=== PATIENT | female | born 1955 | race American Indian/Alaskan Native ===

== ENCOUNTER 2023-07-23 10:46 | Inpatient (IN) | payer BC, OTHER ==
[2023-07-23] MEDS ORDERED: MORPHINE 4 MG/ML SYR ONE (11:33)
[2023-07-23] MEDS ORDERED: ONDANSETRON 4 MG/2 ML VIAL ONE (11:33)
[2023-07-23 11:38] LABS: Absolute Lymphocytes (CBC) 1.8 K/uL (0.7-4.9); Lymphocytes % 26.6 % (15.3-44.8); MCV 87.4 fL (80-100); Platelets 442 thou/uL (152-406); RBC Red Blood Cell Count 5.49 M/uL (3.86-4.86)
[2023-07-23 11:44] LABS: Arterial Blood Carboxyhemoglob 1.6 % (0-1.5); Blood Gas Oxyhemoglobin 81.3 % (94-97); Blood O2 Saturation 84.2 % (92-98.5)
--- NOTE | 2023-07-23 11:47 | RAD REPORT ---
EXAM DESCRIPTION: CT - Head Brain Wo Cont - 07/23/2023 11:28 am CLINICAL HISTORY: Alteration of awareness/confusion COMPARISON: None TECHNIQUE: Computed axial tomography of the head was obtained. IV contrast was not requested. All CT scans are performed using dose optimization technique as appropriate and may include automated exposure control or mA/KV adjustment according to patient size. FINDINGS: Images at the base of the brain are degraded by beam hardening artifact. An intracranial bleed is not seen The ventricles are normal in caliber No extra-axial fluid collection is noted. No significant hyperdensity within the brain noted. Fluid within the sinuses/ mastoids is not seen. IMPRESSION: No gross acute intracranial abnormality seen If patient's symptoms persist MRI of the brain would be recommended
--- NOTE | 2023-07-23 11:50 | RAD REPORT ---
EXAM DESCRIPTION: CT - Chest For Pe Angio - 07/23/2023 11:29 am CLINICAL HISTORY: Chest pain COMPARISON: None. TECHNIQUE: Dynamically enhanced axial 3 mm thick images of the chest were obtained during administra tion of 100 mL Isovue 370 IV contrast. Coronal and oblique reconstruction images were generated and r eviewed. Exam utilizes a protocol for optimal evaluation of pulmonary arterial tree. Maximum intensity projections 3D imaging was utilized All CT scans are performed using dose optimization technique as appropriate and may include automated exposure control or mA/KV adjustment according to patient size. FINDINGS: A pulmonary embolus is not seen. A thoracic aortic aneurysm is not noted. A pleural effusion is not seen. A pericardial effusion is not seen. A lung consolidation is not present. IMPRESSION: Negative for a pulmonary embolism.
[2023-07-23 11:57] LABS: Albumin 4.2 g/dL (3.4-5.0); Bilirubin Total 0.8 mg/dL (0.2-1.0); Potassium 4.3 mEq/L (3.5-5.1); Protein, Total 8.1 g/dL (6.4-8.2)
[2023-07-23 12:01] LABS: Troponin High Sensitivity 129.4 pg/mL (<58.9)
[2023-07-23 12:08] LABS: Protime INR 0.96
--- NOTE | 2023-07-23 12:29 | EDPHYS ---
Physician Documentation [facility] Name: Susan Drake Age: 68 yrs Sex: Female : 1955 Arrival Date: 07/23/2023 Time: 10:46 Bed 4 Private MD: ED Physician Alton Haddad HPI: 07/23 11:07 This 68 yrs old Female presents to ER via Wheelchair with complaints of rt Chest Pain, Shortness Of Breath. 11:07 Patient who is currently on chemotherapy for breast cancer, last session was yesterday rt presents to the ED with an acute onset of chest pain, dyspnea started about 20 minutes prior to arrival. She has a generalized weakness since last chemotherapy treatment. states that she is confused. Denies other acute complaints at this time, symptoms are moderate in severity, no other aggravating alleviating factors. Historical: - Allergies: 10:51 Sulfa (Sulfonamide Antibiotics); jj7 - PMHx: 10:51 Diabetes mellitus; BREAST CANCER; jj7 - PSHx: 10:51 RIGHT MASTECTOMY; jj7 - Immunization history:: Adult Immunizations up to date. - Social history:: Smoking status: Patient denies any tobacco usage or history of. Patient/guardian denies using alcohol, street drugs. - Family history:: not pertinent. ROS: 11:07 Constitutional: Negative for fever, chills, and weight loss, Abdomen/GI: Negative for rt abdominal pain, nausea, vomiting, diarrhea, and constipation, MS/Extremity: Negative for injury and deformity, Skin: Negative for injury, rash, and discoloration, 11:07 Cardiovascular: Positive for chest pain, Negative for edema, 11:07 Respiratory: Positive for shortness of breath, Negative for wheezing, 11:07 Neuro: Positive for altered mental status, weakness, Exam: 11:07 Constitutional: This is a well developed, well nourished patient who is awake, alert, rt and in no acute distress. Head/Face: Normocephalic, atraumatic. Chest/axilla: Normal chest wall appearance and motion. Nontender with no deformity. No lesions are appreciated. Cardiovascular: Regular rate and rhythm with a normal S1 and S2. No gallops, murmurs, or rubs. Normal PMI, no JVD. No pulse deficits. Respiratory: Lungs have equal breath sounds bilaterally, clear to auscultation and percussion. No rales, rhonchi or wheezes noted. No increased work of breathing, no retractions or nasal flaring. Abdomen/GI: Soft, non-tender, with normal bowel sounds. No distension or tympany. No guarding or rebound. No evidence of tenderness throughout. Skin: Warm, dry with normal turgor. Normal color with no rashes, no lesions, and no evidence of cellulitis. MS/ Extremity: Pulses equal, no cyanosis. Neurovascular intact. Full, normal range of motion. Neuro: Awake and alert, GCS 15, oriented to person, place, time, and situation. Cranial nerves II-XII grossly intact. Motor strength 5/5 in all extremities. Sensory grossly intact. Cerebellar exam normal. Normal gait. Psych: Awake, alert, with orientation to person, place and time. Behavior, mood, and affect are within normal limits. 11:07 ECG was reviewed by the Attending Physician. Vital Signs: 10:47 BP 149 / 109; Pulse 119; Resp 22; Pulse Ox 100% ; Weight 95.71 kg; Height 5 ft. 9 in. ; jj7 Pain 4/10; 11:02 Pulse 110; Resp 28; Temp 97.8(O); Pulse Ox 100% on R/A; kd3 12:41 BP 157 / 74; Pulse 102; Resp 22; Pulse Ox 100% on R/A; kd3 13:39 BP 167 / 74; Pulse 98; Resp 16; Pulse Ox 98% on R/A; kd3 10:47 Body Mass Index 31.16 (95.71 kg, 175.26 cm) jj7 10:47 Pain Scale: Adult jj7 MDM: 10:55 Patient medically screened. rt 12:25 Differential diagnosis: Pneumonia, pneumothorax, pulmonary embolism, sepsis, rt electrolyte disturbance, DKA. Data reviewed: vital signs, nurses notes, lab test result(s), EKG, radiologic studies. Consideration of Admission/Observation Patient was admitted/placed on observation. Management of patient was discussed with the following: Hospitalist: Agrees to admit. I considered the following discharge prescriptions or medication management in the emergency department Medications were administered in the Emergency Department. See MAR Patient's ideal body weight is 66 kg, IV resuscitation was based off of this weight as she is obese.. Independent interpretation of the following test(s) in the Emergency Department CT Scan: My interpretation is Interpretation of CT scan images no pulmonary embolism seen on my interpretation of CT scan images. Test considered but Not performed: X-ray: CT scan obtained, x-ray redundant. Care significantly affected by the following chronic conditions: Diabetes. Counseling: I had a detailed discussion with the patient and/or guardian regarding the historical points, exam findings, and any diagnostic results supporting the discharge/admit diagnosis, lab results, radiology results, the need for further work-up and treatment in the hospital. Response to treatment: the patient's symptoms have markedly improved after treatment. 07/23 11:05 Order name: Blood Culture Adult (2) rt 07/23 11:05 Order name: CBC with Diff; Complete Time: 11:55 rt 07/23 11:05 Order name: CMP; Complete Time: 12:16 rt 07/23 11:05 Order name: Lactate w/ 2H reflex if indic.; Complete Time: 12:16 rt 07/23 11:05 Order name: Protime (+inr); Complete Time: 12:16 rt 07/23 11:05 Order name: Ptt, Activated; Complete Time: 12:16 rt 07/23 11:05 Order name: Urinalysis w/ reflexes rt 07/23 11:05 Order name: ABG: VBG only; Complete Time: 12:20 rt 07/23 11:05 Order name: Troponin High Sensitivity; Complete Time: 12:16 rt 07/23 11:05 Order name: BNP; Complete Time: 12:16 rt 07/23 13:11 Order name: NT PRO-BNP EDMS 07/23 13:11 Order name: T4 Free EDMS 07/23 13:11 Order name: Thyroid Stimulating Hormone EDMS 07/23 13:11 Order name: Urinalysis w/ reflexes EDMS 07/23 13:11 Order name: Basic Metabolic Panel EDMS 07/23 13:11 Order name: Basic Metabolic Panel EDMS 07/23 13:11 Order name: Basic Metabolic Panel EDMS 07/23 13:11 Order name: Basic Metabolic Panel EDMS 07/23 13:11 Order name: CBC with Automated Diff EDMS 07/23 13:11 Order name: CBC with Automated Diff EDMS 07/23 13:11 Order name: CBC with Automated Diff EDMS 07/23 13:11 Order name: CBC with Automated Diff EDMS 07/23 13:11 Order name: Lipid Profile EDMS 07/23 13:11 Order name: Lipid Profile EDMS 07/23 13:11 Order name: Magnesium EDMS 07/23 13:11 Order name: Magnesium EDMS 07/23 13:11 Order name: Magnesium EDMS 07/23 13:11 Order name: Magnesium EDMS 07/23 13:11 Order name: Phosphorus EDMS 07/23 13:11 Order name: Phosphorus EDMS 07/23 13:11 Order name: Phosphorus EDMS 07/23 13:11 Order name: Phosphorus EDMS 07/23 11:05 Order name: CT Head Brain wo Cont; Complete Time: 11:55 rt 12 11:05 Order name: CT Chest For PE Angio; Complete Time: 11:55 rt 07/23 11:05 Order name: EKG; Complete Time: 11:06 rt 07/23 11:05 Order name: Accucheck; Complete Time: 12:29 rt 07/23 11:05 Order name: Cardiac monitoring; Complete Time: 11:26 rt 12 11:05 Order name: EKG - Nurse/Tech; Complete Time: 11:21 rt 12 11:05 Order name: IV Saline Lock - Large Bore; Complete Time: 11:26 rt 12 11:05 Order name: Labs collected and sent; Complete Time: 11:27 rt 12 11:05 Order name: O2 Per Protocol; Complete Time: 11:27 rt 07/23 11:05 Order name: O2 Sat Monitoring; Complete Time: 11:27 rt 07/23 11:05 Order name: Vital Signs; Complete Time: 11:27 rt EC:07 Rate is 121 beats/min. Rhythm is regular, Sinus tachycardia with No ectopy. QRS Seney is rt Normal. FL interval is normal. QRS interval is normal. QT interval is normal. No Q waves. Clinical impression: NSR w/ Non-specific ST/T Changes. Administered Medications: 11:26 Drug: morphine IVP or IV 4 mg IVP once over 4 mins Route: IVP; Infused Over: 4 mins; kd3 Site: right antecubital; 13:11 Follow up: Response: No adverse reaction; Pain is decreased kd3 11:26 Drug: Ondansetron IVP 4 mg IVP once; over 2 minutes Route: IVP; Site: right antecubital;kd3 13:11 Follow up: Response: No adverse reaction; Nausea is decreased kd3 12:41 Drug: NS 0.9% IV 1000 ml IV at 1 bolus Per protocol; 1000 mL bolus Route: IV; Rate: 1 kd3 bolus; Site: left upper arm; 12:41 Drug: Cefepime IVPB 2 grams IVPB at 200 ml/hr once over 30 mins; (mix in NS 100 mL) kd3 Route: IVPB; Rate: 200 ml/hr; Infused Over: 30 mins; Site: left upper arm; 13:11 Follow up: IV Status: Completed infusion; IV Intake: 100ml kd3 13:10 Drug: vancoMYCIN IVPB 1 grams IVPB once over 2 hrs Route: IVPB; Infused Over: 2 hrs; kd3 Site: left upper arm; Disposition: 12:29 Critical Care:. rt Disposition Summary: 07/23/23 12:29 Hospitalization Ordered Notes: Hospitalization Status: Inpatient Admission rt Provider: Dilcia Cuevas rt Location: Telemetry/[facility] (Inpatient) rt Condition: Fair rt Problem: new rt Symptoms: have improved rt Bed/Room Type: Standard rt Room Assignment: 220(07/23/23 13:08) eb Diagnosis - Lactic acidosis rt - Elevated troponin rt - Chest pain rt - Dyspnea rt Forms: - Medication Reconciliation Form rt - SBAR form rt - Leadership Thank You Letter rt Critical care time excluding procedures: 12:29 Critical care time: Bedside Care: 30 minutes, Consultation: 5 minutes. Total time: 35 rt minutes Signatures: Dispatcher [employer] Joyce oLpez Kyli RN RN kd3 Estela Silva RN RN jj7 Alton Haddad MD MD rt Corrections: (The following items were deleted from the chart) 13: 12:29 rt eb
--- NOTE | 2023-07-23 12:29 | ER ---
Nurse's Notes [facility] Name: Susan Drake Age: 68 yrs Sex: Female : 1955 Arrival Date: 07/23/2023 Time: 10:46 Bed 4 Private MD: Diagnosis: Lactic acidosis;Elevated troponin;Chest pain;Dyspnea Presentation: 07/23 10:47 Chief complaint: Patient states: SOB,CP, AND MENTAL CONFUSION STARTED 20 MINUTES AGO. j7 HAD CHEMO YESTERDAY. Coronavirus screen: At this time, the client does not indicate any symptoms associated with coronavirus-19. Ebola Screen: No symptoms or risks identified at this time. Initial Sepsis Screen: Does the patient meet any 2 criteria? HR > 90 bpm. Yes Does the patient have a suspected source of infection? No. Patient's initial sepsis screen is negative. Risk Assessment: Do you want to hurt yourself or someone else? Patient reports no desire to harm self or others. Onset of symptoms was July 23, 2023. 10:47 Method Of Arrival: Wheelchair j 10:47 Acuity: SUSAN 3 jj7 Triage Assessment: 10:51 General: Appears in no apparent distress. uncomfortable, Behavior is cooperative, jj7 appropriate for age, crying. Pain: Complains of pain in chest. Cardiovascular: Reports chest pain, fatigue, shortness of breath, DIZZINESS. Historical: - Allergies: 10:51 Sulfa (Sulfonamide Antibiotics); jj7 - PMHx: 10:51 Diabetes mellitus; BREAST CANCER; jj7 - PSHx: 10:51 RIGHT MASTECTOMY; jj7 - Immunization history:: Adult Immunizations up to date. - Social history:: Smoking status: Patient denies any tobacco usage or history of. Patient/guardian denies using alcohol, street drugs. - Family history:: not pertinent. Screenin:29 [facility] ED Fall Risk Assessment (Adult) History of falling in the last 3 months, kd3 including since admission No falls in past 3 months (0 pts) Confusion or Disorientation Yes (5 pts) Intoxicated or Sedated No (0 pts) Impaired Gait Yes (1 pt) Mobility Assist Device Used No (0 pt) Altered Elimination No (0 pt) Score/Fall Risk Level 3 or more points = High Risk Oriented to surroundings, Maintained a safe environment, Educated pt \T\ family on fall prevention, incl call for assistance when getting out of bed, Assessed \T\ reinforced patient's understanding of fall precautions, Provided non-skid footwear, Hourly rounding (assess needs \T\ fall precautionary measures) done. Abuse screen: Denies threats or abuse. Denies injuries from another. Nutritional screening: No deficits noted. Tuberculosis screening: No symptoms or risk factors identified. Assessment: 11:27 General: Appears ill, Behavior is anxious. Pain: Complains of pain in chest Pain kd3 radiates to back Pain began suddenly. Cardiovascular: diaphoretic . Respiratory: Airway is patent Respiratory effort is even, Respiratory pattern is tachypnea. 13:19 Reassessment: Patient and/or family updated on plan of care and expected duration. Pain kd3 level reassessed. Patient is alert, oriented x 3, equal unlabored respirations, skin warm/dry/pink. Patient states feeling better. Patient states symptoms have improved. 13:39 General: called report to gabby ARREOLA. Pt ready for transportation. . kd3 Vital Signs: 10:47 BP 149 / 109; Pulse 119; Resp 22; Pulse Ox 100% ; Weight 95.71 kg; Height 5 ft. 9 in. ; jj7 Pain 4/10; 11:02 Pulse 110; Resp 28; Temp 97.8(O); Pulse Ox 100% on R/A; kd3 12:41 BP 157 / 74; Pulse 102; Resp 22; Pulse Ox 100% on R/A; kd3 13:39 BP 167 / 74; Pulse 98; Resp 16; Pulse Ox 98% on R/A; kd3 10:47 Body Mass Index 31.16 (95.71 kg, 175.26 cm) j7 10:47 Pain Scale: Adult j7 ED Course: 10:46 Patient arrived in ED. im 10:47 Alton Haddad MD is Attending Physician. rt 10:51 Triage completed. jj7 10:51 Arm band placed on right wrist. EKG completed in triage. Results shown to . j7 10:58 Osiris Lyons, RN is Primary Nurse. kd3 11:26 BNP Sent. kd3 11:26 Troponin High Sensitivity Sent. kd3 11:27 Blood Culture Adult (2) Sent. kd3 11:27 CBC with Diff Sent. kd3 11:27 CMP Sent. kd3 11:27 Lactate w/ 2H reflex if indic. Sent. kd3 11:27 Protime (+inr) Sent. kd3 11:27 Ptt, Activated Sent. kd3 11:28 No provider procedures requiring assistance completed. Inserted saline lock: 20 gauge kd3 in right antecubital area, using aseptic technique. Blood collected. Patient maintains SpO2 saturation greater than 95% on room air. 11:29 Patient has correct armband on for positive identification. Bed in low position. Side kd3 rails up X2. Provided Education on: blood cultures . Client placed on continuous cardiac and pulse oximetry monitoring. NIBP monitoring applied. pvc monitor on. 11:30 CT Head Brain wo Cont In Process Unspecified. EDMS 11:30 CT Chest For PE Angio In Process Unspecified. EDMS 12:13 Inserted saline lock: 18 gauge in left upper arm, using aseptic technique. kd3 12:13 IV discontinued, intact, bleeding controlled, No redness/swelling at site. Pressure kd3 dressing applied. 12:28 Dilcia Cuevas MD is Hospitalizing Provider. rt Administered Medications: 11:26 Drug: morphine IVP or IV 4 mg IVP once over 4 mins Route: IVP; Infused Over: 4 mins; kd3 Site: right antecubital; 13:11 Follow up: Response: No adverse reaction; Pain is decreased kd3 11:26 Drug: Ondansetron IVP 4 mg IVP once; over 2 minutes Route: IVP; Site: right antecubital;kd3 13:11 Follow up: Response: No adverse reaction; Nausea is decreased kd3 12:41 Drug: NS 0.9% IV 1000 ml IV at 1 bolus Per protocol; 1000 mL bolus Route: IV; Rate: 1 kd3 bolus; Site: left upper arm; 12:41 Drug: Cefepime IVPB 2 grams IVPB at 200 ml/hr once over 30 mins; (mix in NS 100 mL) kd3 Route: IVPB; Rate: 200 ml/hr; Infused Over: 30 mins; Site: left upper arm; 13:11 Follow up: IV Status: Completed infusion; IV Intake: 100ml kd3 13:10 Drug: vancoMYCIN IVPB 1 grams IVPB once over 2 hrs Route: IVPB; Infused Over: 2 hrs; kd3 Site: left upper arm; Medication: 11:27 VIS not applicable for this client. kd3 Intake: 13:11 IV: 100ml; Total: 100ml. kd3 Outcome: 12:29 Decision to Hospitalize by Provider. rt 14:07 Admitted to Med/surg kd3 14:07 Condition: stable 14:07 Discharge instructions given to patient, family, Instructed on the need for admit, Demonstrated understanding of instructions, 14:08 Patient left the ED. kd3 Signatures: Dispatcher [facility] Osiris Yadav RN RN kd3 Esetla Silva RN RN jj7 Alton Haddad MD MD rt Elisabet Spencer Corrections: (The following items were deleted from the chart) 11:02 11:02 Pulse 110bpm; Resp 32bpm; Pulse Ox 100% RA; Temp 97.8F Oral; kd3 kd3
[2023-07-23] MEDS ORDERED: NA CHLORIDE 0.9% 250 ML ONE (12:45)
[2023-07-23] MEDS ORDERED: VANCOMYCIN 1 GM/VIAL ONE (12:45)
[2023-07-23] MEDS ORDERED: NA CHLORIDE 0.9% 1,000 ML ONE (12:45)
[2023-07-23] MEDS ORDERED: CEFEPIME 1 GM/VIAL ONE (12:46)
[2023-07-23] MEDS ORDERED: NA CHLORIDE 0.9% 100 ML ONE (12:46)
[2023-07-23 12:48] LABS: Urine Bacteria <20 /HPF (<20); Urine Bilirubin NEGATIVE (Negative); Urine Blood Negative (Negative); Urine Clarity Clear (Clear); Urine Color Colorless (Yellow); Urine Glucose 4+ (Over) (Negative); Urine Protein NEGATIVE (Negative); Urine Urobilinogen Normal (Normal); Urine pH 5.5 (5.0-7.0)
[2023-07-23 12:49] LABS: Specific Gravity ND (1.005-1.030)
[2023-07-23] MEDS ORDERED: ONDANSETRON 4 MG/2 ML VIAL IV PRN (13:04)
[2023-07-23] MEDS ORDERED: ALBUTEROL 2.5 MG/3 ML NEB SOL NEB PRN (13:04)
[2023-07-23] MEDS ORDERED: MORPHINE 2 MG/ML SYR IV PRN (13:10)
[2023-07-23] MEDS ORDERED: SODIUM CHLORIDE 0.9% 10ML INJ IV PRN (13:10)
--- NOTE | 2023-07-23 13:22 | P.HP ---
Certification for Inpatient Patient admitted to: Inpatient With expected LOS: <2 Midnights Patient will require the following post-hospital care: None Practitioner: I am a practitioner with admitting privileges, knowledge of patient current condition, hospital course, and medical plan of care. Services: Services provided to patient in accordance with Admission requirements found in Title 42 Section 412.3 of the Code of Federal Regulations <MckeonRuchi bray - Last Filed: 07/23/23 14:03> Patient History Date of Service: 07/23/23 Reason for admission: Sepsis, chest pain, dyspnea History of Present Illness: Ms. Crow, a 68-year-old female with a history of breast cancer currently on chemotherapy, type 2 diabetes [id number], presented to ER via wheelchair with complaints of chest pain and shortness of breath. Patient reports last session chemotherapy was yesterday. Patient reports the chest pain was acute, shortness of breath started prior to arrival to the emergency room. Patient is positive for generalized weakness since last chemotherapy treatment. is helping with the history he states that she is also confused. Patient denies any acute complaints at this time. Patient denies fever, chills, nausea, vomiting. ED course Vital Signs: BP 149 / 109; Pulse 119; Resp 22; Pulse Ox 100% ; Weight 95.71 kg; Height 5 ft. 9 in. Pain 4/10. EKG showing sinus tachycardia. Initial lab work significant for lacticacidosis of 4.6, elevated troponin of 129.4, BNP 149. CBC and metabolic panel is reassuring, CT chest negative for pulmonary embolism, CT head is negative. Admitting the patient with a diagnosis of sepsis, chest pain, and dyspnea. <Ruchi Mckeon - Last Filed: 07/23/23 14:03> Date of Service: 07/23/23 <Dilcia Cuevas - Last Filed: 07/23/23 15:53> Allergies sulfacetamide Allergy (Verified 05/05/23 16:18) Anaphylaxis Review of Systems 10-point ROS is otherwise unremarkable <Ruchi Mckeon - Last Filed: 07/23/23 14:03> Physical Examination - Physical Exam General: Alert, Oriented x3, Other (Tired looking,) HEENT: Atraumatic, Normocephalic Respiratory: Clear to auscultation bilaterally, Normal air movement Cardiovascular: No edema, Normal pulses, Regular rate/rhythm, Other (Sinus tachycardia) Capillary refill: <2 Seconds Gastrointestinal: Normal bowel sounds, Soft and benign Musculoskeletal: No clubbing, No swelling Neurological: Normal speech, Normal tone, Normal affect - Studies Laboratory Data (last 24 hrs) 07/23/23 07/23/23 07/23/23 11:21 11:21 11:21 WBC 6.70 Hgb 15.7 H Hct 48.0 H Plt Count 442 H PT 10.6 INR 0.96 APTT 31.4 Sodium 133 L Potassium 4.3 BUN 16 Creatinine 0.91 Glucose 297 H Total Bilirubin 0.8 AST 12 L ALT 26 Alkaline Phosphatase 118 H <Ruchi Mckeon - Last Filed: 07/23/23 14:03> - Studies Laboratory Data (last 24 hrs) 07/23/23 07/23/23 07/23/23 11:21 11:21 11:21 WBC 6.70 Hgb 15.7 H Hct 48.0 H Plt Count 442 H PT 10.6 INR 0.96 APTT 31.4 Sodium 133 L Potassium 4.3 BUN 16 Creatinine 0.91 Glucose 297 H Total Bilirubin 0.8 AST 12 L ALT 26 Alkaline Phosphatase 118 H <Dilcia Cuevas - Last Filed: 07/23/23 15:53> Assessment and Plan - Problems (Diagnosis) (1) Sepsis Current Visit: No Status: Acute Qualifiers: Sepsis acute organ dysfunction status: unspecified (2) Lactic acidosis Current Visit: No Status: Acute (3) Shortness of breath Current Visit: No Status: Acute (4) Chest pain Current Visit: No Status: Acute (5) Elevated troponin I level Current Visit: No Status: Acute (6) Breast cancer Current Visit: No Status: Acute (7) DM type 2 (diabetes mellitus, type 2) Current Visit: No Status: Chronic Qualifiers: Diabetes mellitus fci insulin use: without fci use Diabetes mellitus complication status: without complication Qualified Code(s): E11.9 - Type 2 diabetes mellitus without complications - Plan - Problems (Diagnosis) (1) Sepsis (2) Lactic acidosis (3) Shortness of breath Sepsis likely secondary to no clear source of infection at this time Text meets SIRS criteria based on HR > 90 bpm, RR > 20 breaths/min and elevated lactic acid 4.6, and the suspected source is likely lung. Patient was presented to the emergency room with the acute chest pain and shortness of breath, patient was afebrile, tachycardic and tachypneic. SpO2 is maintaining 95% at this time. Plan: -Admitting the patient in the hospital - Sepsis order set was initiated - Initial Lactate was 4.6 trend - Blood cultures drawn before antibiotics were given - Broad spectrum antibiotics started: Cefepime 2 g every 8 hours - 30 mL/kg of IV fluids was not administered given SBP > 90, MAP > 65 -Monitor vital signs, electrolytes replete as per protocol (4) Chest pain (5) Elevated troponin I level -Patient came in with acute midsternal chest pain, initial troponin I is 129.4 -Chest Pain, concern for Acute Coronary Syndrome (Non-ST Segment Elevation Myocardial Infarction) Based on history and physical examination, cannot exclude ischemia as a possible etiology of patient's chest pain. - EKG: No obvious ST segment changes, trend - Serial troponin - Ordered d-dimer - Consult Cardiology Dr. Pelaez - S/P aspirin 324 mg PO x 1 in ED - Start daily baby aspirin - Symptom control with PRN acetaminophen, nitroglycerin, morphine (6) Breast cancer -Patient is on chemotherapy for breast cancer, last chemotherapy session was yesterday. -Patient is under the care of Dr. Ramos -Consulted Dr. Ramos. (7) DM type 2 (diabetes mellitus, type- 2 -Chronic controlled on metformin at home -Patient denies hypoglycemic episodes, blood sugar 297 on the initial lab -Will continue to monitor the blood sugar before meals and at bedtime with a sliding scale of low-dose insulin -Hypoglycemic precautions -Will check the A1c in the morning CODE STATUSfull code DVT prophylaxisLovenox Dietregular Discharge Plan: Home Plan to discharge in: 48 Hours - Advance Directives Does patient have a Living Will: No Does patient have a Durable POA for Healthcare: No - Code Status/Comfort Care Code Status Assessed: Yes (Full code) Code Status: Full Code Physician Review: Patient Assessed, Agree with Above Assessment and Plan Critical Care: No Time Spent Managing Pts Care (In Minutes): 55 (Minutes) <Ruchi Mckeon - Last Filed: 07/23/23 14:03> Physician Review Additional Text: Pt seen and examined. I agree with the note by the [employer] P[employer] ATTENDANT. Pt is a 68-year-old female with a history of breast cancer currently on chemotherapy and type 2 diabetes [id number] who presents with complaints of chest pain and shortness of breath. Of note, pt had chemotherapy for breast cancer yesterday. She started feeling ill and later had nausea and vomiting. On admission, lab studies show lactate 4.6, Na 133, bicab 16, troponin 129, Calcium 10.1. CT chest is negative for PE. At bedside, pt is in NAD. A/P: SIRS: No known source of infection. Will continue IVF. Continue empiric vanc and cefepime. lactic acidosis: lactate is 4.6. Will give IVF and trend lactate Hyponatremia: Na is 133. Will continue IVF and monitor na level. Dyspnea: CT chest is negative for PE. Will monitor oxygen saturation. Chest pain: troponin 129. Will trend troponin Q6h. Continue aspirin and check lipid panel. Continue ALEX therapy. Hx of breast cancer: last chemo was yesterday. Will consult Oncology. DM II: Continue accuchek, SSI, lantus 15u qhs and ADA diet. Obesity: Pt was advised to lose weight. DVT ppx: lovenox Code: full <Dilcia Cuevas - Last Filed: 07/23/23 15:53>
[2023-07-23] MEDS ORDERED: CEFEPIME 2 GM in NA CHLORIDE 0.9% 100 ML IV SCH ×3 (14:00→21:00)
[2023-07-23] MEDS ORDERED: MORPHINE 4 MG/ML SYR IV PRN (14:04)
[2023-07-23] MEDS ORDERED: ASPIRIN 325 MG TAB PO ONE (14:12)
[2023-07-23] MEDS ORDERED: NITROGLYCERIN 0.4 MG/TAB SL PRN (14:13)
[2023-07-23] MEDS: NA CHLORIDE 0.9% 1,000 ML IV SCH (14:30)
[2023-07-23 15:44] VITALS: BMI 33.7
[2023-07-23] MEDS ORDERED: PIPER TAZO 3.375 GM in NA CHLORIDE 0.9% 100 ML IV SCH (17:00)
[2023-07-23] MEDS: INSULIN REGULAR (HUMAN) 100 UNIT/ML SQ SCH ×2 (17:51→20:52)
--- NOTE | 2023-07-23 22:32 | CON ---
Date of Consultation: 07/23/2023 Reason For Consultation: Chest pain and borderline elevated troponin. History Of Present Illness: A 68-year-old female with history of breast cancer on chemotherapy, [employer], who presented complaining with shortness of breath and chest pain. She claimed after her chemo therapy session, started feeling bad, nauseated, and had shortness of breath and chest discomfort. A t the present time, she is chest pain free and resting comfortably in the bed. No history of cardiac disease. Past Medical History: As outlined above in the HPI. Medications: Refer to reconciliation sheet for detailed list. Allergies: SULFACETAMIDE. Family History: No mature coronary artery disease or cancer. Social History: She does not smoke or drink. Does not use any drugs. Review of Systems: All systems reviewed were negative except mentioned in HPI. Physical Examination: Vital Signs: Reviewed. Head and Neck: Pupils are equal, reactive to light. Intact eye movements. No JVD. No cervical lym phadenopathy. Neck: Supple. Thyroid is not enlarged. Lungs: Clear to auscultation bilaterally. No rhonchi, wheezing, or crackles. No accessory muscle u se. Heart: Regular rate and rhythm. No extra sounds. Abdomen: Soft, nontender. Bowel sounds positive. No organomegaly. No masses or hernia. No rigidi ty or rebound. Extremities: No edema, clubbing, or cyanosis. Intact pulses. Skin: No rash. Neurologic: Alert, awake, oriented x3. No acute focal deficits appreciated. Investigations: Troponin 129 and then 121. BUN 16, creatinine 0.91. Hemoglobin 15.7. Assessment/recommendations: 1.Chest pain. Borderline elevated troponin. However, she is on aggressive chemotherapy for breast c ancer. Recommend Lexiscan nuclear stress test and an echo to further evaluate. In the interim, baby aspirin daily and if chest pain happens, to use nitroglycerin patch. 2.Dehydration, on IV fluids. 3.Breast cancer, on chemotherapy. She will need an echocardiogram now and periodically. SR/MODL Voice ID: [id number] Report ID: [id number]
[2023-07-24] MEDS: NA CHLORIDE 0.9% 1,000 ML IV SCH (05:58)
[2023-07-24] MEDS: ACETAMINOPHEN 500 MG TAB PO PRN ×2 (05:58→11:27)
[2023-07-24 06:49] LABS: Absolute Lymphocytes (CBC) 1.5 K/uL (0.7-4.9); Hematocrit 42.1 % (36.0-45.0); MCV 88.5 fL (80-100); Platelets 351 thou/uL (152-406); RBC Red Blood Cell Count 4.76 M/uL (3.86-4.86)
[2023-07-24 07:05] LABS: Magnesium 1.9 mg/dL (1.6-2.4); Phosphorus 2.9 mg/dL (2.5-4.9); Potassium 4.2 mEq/L (3.5-5.1)
[2023-07-24] MEDS: INSULIN REGULAR (HUMAN) 100 UNIT/ML SQ SCH ×2 (07:30→11:28)
[2023-07-24 08:37] VITALS: O2SAT 99
[2023-07-24] MEDS ORDERED: CEFEPIME 2 GM in NA CHLORIDE 0.9% 100 ML IV SCH (09:00)
[2023-07-24] MEDS ORDERED: CEFEPIME 1 GM in NA CHLORIDE 0.9% 100 ML IV SCH (09:00)
[2023-07-24] MEDS ORDERED: ASPIRIN EC 81 MG TAB PO SCH (09:00)
[2023-07-24] MEDS ORDERED: ENOXAPARIN 40 MG/0.4 ML SQ SCH (09:00)
[2023-07-24] MEDS ORDERED: PANTOPRAZOLE 40 MG INJ IVP SCH (09:00)
[2023-07-24 10:04] LABS: Thyroid Stimulating Hormone 1.08 uIU/mL (0.358-3.740)
[2023-07-24 12:20] VITALS: BP 123/68; TEMP 97
--- NOTE | 2023-07-24 12:34 | P.DS ---
Admission Date: 07/23/23 Discharge Date: 07/24/23 Reason for Admission: Sepsis, chest pain, dyspnea - Problems (1) Sepsis Status: Acute Qualifiers: Sepsis acute organ dysfunction status: unspecified (2) Lactic acidosis Status: Acute (3) Shortness of breath Status: Acute (4) Chest pain Status: Acute (5) Elevated troponin I level Status: Acute (6) Breast cancer Status: Acute (7) DM type 2 (diabetes mellitus, type 2) Status: Chronic Qualifiers: Diabetes mellitus terminal gauger supervisor insulin use: without nursing home use Diabetes mellitus complication status: without complication Qualified Code(s): E11.9 - Type 2 diabetes mellitus without complications Brief History of Present Illness: Ms. Crow, a 68-year-old female with a history of breast cancer currently on chemotherapy, type 2 diabetes [id number], presented to ER via wheelchair with complaints of chest pain and shortness of breath. Patient reports last session chemotherapy was yesterday. Patient reports the chest pain was acute, shortness of breath started prior to arrival to the emergency room. Patient is positive for generalized weakness since last chemotherapy treatment. is helping with the history he states that she is also confused. Patient denies any acute complaints at this time. Patient denies fever, chills, nausea, vomiting. ED course Vital Signs: BP 149 / 109; Pulse 119; Resp 22; Pulse Ox 100% ; Weight 95.71 kg; Height 5 ft. 9 in. Pain 4/10. EKG showing sinus tachycardia. Initial lab work significant for lacticacidosis of 4.6, elevated troponin of 129.4, BNP 149. CBC and metabolic panel is reassuring, CT chest negative for pulmonary embolism, CT head is negative. Admitting the patient with a diagnosis of sepsis, chest pain, and dyspnea. Hospital Course: Ms. Crow, a 68-year-old female with a past medical history significant for breast cancer currently on chemotherapy, type 2 diabetes [id number] who was admitted to the [facility] on07/23/2023 a diagnosis of sepsis, chest pain, and dyspnea. Patient was admitted to the hospital started on IV hydration, IV antibiotics, analgesics and PPI , aspirin, nitroglycerin, morphine. patient was seen by fire fighter airport fire fighter airport in the hospital. On 07/24/2020, patient was seen on morning rounds and deemed medically stable for discharge. Patient was discharged with instructions to schedule follow-up appointments with PCP in 1 week, oncologist and fire fighter airport. Patient will see Dr. Pelaez on 07/26/2023 and schedule appointments for stress test and echo. The patient and family members were given the opportunity to ask questions and reported no further questions. Furthermore, all questions were answered to the best of my ability. 1. Please call and schedule a follow-up appointment with your PCP in 3-5 days 2. Please call and schedule a follow-up appointment with oncologyist in 3-5 days 4.Please call and schedule a follow-up appointment with your fire fighter airport on 07/26/2023 3. Please follow-up with your PCP for medication refills/adjustments <Ruchi Mckeon - Last Filed: 07/24/23 12:36> Admission Date: 07/23/23 Discharge Date: 07/25/23 Hospital Course: Pt seen and examined. I agree with the note by the COAL SHOVELER. <Dilcia Cuevas - Last Filed: 07/25/23 16:44> Disposition: ROUTINE DISCHARGE Discharge Condition: GOOD Vital Signs/Physical Exam: Temp Pulse Resp BP Pulse Ox 97.0 F 104 H 16 123/68 95 07/24/23 12:00 07/24/23 12:00 07/24/23 12:00 07/24/23 12:00 07/24/23 12:00 General: Alert HEENT: Normocephalic Neck: Supple, 2+ carotid pulse no bruit Respiratory: Clear to auscultation bilaterally, Normal air movement Cardiovascular: No edema, Normal pulses Capillary refill: <2 Seconds Gastrointestinal: Normal bowel sounds, Soft and benign Musculoskeletal: No clubbing, No swelling Integumentary: No rashes, No breakdown Neurological: Normal gait, Normal speech, Normal affect Laboratory Data at Discharge: WBC 3.40 thou/uL (4.3-10.9) L 07/24/23 05:54 Hgb 13.8 g/dL (12.0-15.0) D 07/24/23 05:54 Hct 42.1 % (36.0-45.0) 07/24/23 05:54 Plt Count 351 thou/uL (152-406) 07/24/23 05:54 PT 10.6 SECONDS (9.5-12.5) 07/23/23 11:21 INR 0.96 07/23/23 11:21 APTT 31.4 SECONDS (24.3-36.9) 07/23/23 11:21 Sodium 136 mEq/L (136-145) 07/24/23 05:54 Potassium 4.2 mEq/L (3.5-5.1) 07/24/23 05:54 BUN 15 mg/dL (7-18) 07/24/23 05:54 Creatinine 0.61 mg/dL (0.55-1.02) 07/24/23 05:54 Glucose 176 mg/dL (74-106) H 07/24/23 05:54 Phosphorus 2.9 mg/dL (2.5-4.9) 07/24/23 05:54 Magnesium 1.9 mg/dL (1.6-2.4) 07/24/23 05:54 Total Bilirubin 0.8 mg/dL (0.2-1.0) 07/23/23 11:21 AST 12 U/L (15-37) L 07/23/23 11:21 ALT 26 U/L (13-56) 07/23/23 11:21 Alkaline Phosphatase 118 U/L (45-117) H 07/23/23 11:21 Triglycerides 337 mg/dL (<150) H 07/24/23 05:54 Cholesterol 170 mg/dL (<200) 07/24/23 05:54 HDL Cholesterol 52 mg/dL (40-60) 07/24/23 05:54 Cholesterol/HDL Ratio 3.27 07/24/23 05:54 <Ruchi Mckeon - Last Filed: 07/24/23 12:36> Vital Signs/Physical Exam: Temp Pulse Resp BP Pulse Ox 97.0 F 104 H 16 123/68 95 07/24/23 12:00 07/24/23 12:00 07/24/23 12:00 07/24/23 12:00 07/24/23 12:00 Laboratory Data at Discharge: WBC 3.40 thou/uL (4.3-10.9) L 07/24/23 05:54 Hgb 13.8 g/dL (12.0-15.0) D 07/24/23 05:54 Hct 42.1 % (36.0-45.0) 07/24/23 05:54 Plt Count 351 thou/uL (152-406) 07/24/23 05:54 PT 10.6 SECONDS (9.5-12.5) 07/23/23 11:21 INR 0.96 07/23/23 11:21 APTT 31.4 SECONDS (24.3-36.9) 07/23/23 11:21 Sodium 136 mEq/L (136-145) 07/24/23 05:54 Potassium 4.2 mEq/L (3.5-5.1) 07/24/23 05:54 BUN 15 mg/dL (7-18) 07/24/23 05:54 Creatinine 0.61 mg/dL (0.55-1.02) 07/24/23 05:54 Glucose 176 mg/dL (74-106) H 07/24/23 05:54 Phosphorus 2.9 mg/dL (2.5-4.9) 07/24/23 05:54 Magnesium 1.9 mg/dL (1.6-2.4) 07/24/23 05:54 Total Bilirubin 0.8 mg/dL (0.2-1.0) 07/23/23 11:21 AST 12 U/L (15-37) L 07/23/23 11:21 ALT 26 U/L (13-56) 07/23/23 11:21 Alkaline Phosphatase 118 U/L (45-117) H 07/23/23 11:21 Triglycerides 337 mg/dL (<150) H 07/24/23 05:54 Cholesterol 170 mg/dL (<200) 07/24/23 05:54 HDL Cholesterol 52 mg/dL (40-60) 07/24/23 05:54 Cholesterol/HDL Ratio 3.27 07/24/23 05:54 <Dilcia Cuevas - Last Filed: 07/25/23 16:44> Diet: ADA Activity: Ad philip <Ruchi Mckeon - Last Filed: 07/24/23 12:36> <Dilcia Cuevas - Last Filed: 07/25/23 16:44> Physician Discharge Instructions: Ms. Crow, a 68-year-old female with a past medical history significant for breast cancer currently on chemotherapy, type 2 diabetes [id number] who was admitted to the [facility] on07/23/2023 a diagnosis of sepsis, chest pain, and dyspnea. Patient was admitted to the hospital started on IV hydration, IV antibiotics, analgesics and PPI patient was seen by fire fighter airport fire fighter airport in the hospital. On 07/24/2020, patient was seen on morning rounds and deemed medically stable for discharge. Patient was discharged with instructions to schedule follow-up appointments with PCP in 1 week, oncologist and fire fighter airport. Patient will see Dr. Pelaez on 07/26/2023 and schedule appointments for stress test and echo. The patient and family members were given the opportunity to ask questions and reported no further questions. Furthermore, all questions were answered to the best of my ability. 1. Please call and schedule a follow-up appointment with your PCP in 3-5 days 2. Please call and schedule a follow-up appointment with oncologyist in 3-5 days 4.Please call and schedule a follow-up appointment with your fire fighter airport on 07/26/2023 3. Please follow-up with your PCP for medication refills/adjustments Followup: NONE,NONE [Primary Care Provider] - Robb Metcalf [ACTIVE - CAN ADMIT] -
== END 2023-07-24 12:53 | disposition home or self-care (01) | DRG 872 ==
LOC: ER 10:46 → 2ND 13:38
PROVIDERS: ADMIT Hospitalist; ATTEND Hospitalist
DX: A41.9 Sepsis, unspecified organism (principal); E87.20 Acidosis, unspecified; C50.919 Malignant neoplasm of unspecified site of unspecified female breast; E11.9 Type 2 diabetes mellitus without complications; D72.829 Elevated white blood cell count, unspecified; E66.9 Obesity, unspecified; E86.0 Dehydration; R77.8 Other specified abnormalities of plasma proteins; Z88.2 Allergy status to sulfonamides; Z90.11 Acquired absence of right breast and nipple; Z68.33 Body mass index [BMI] 33.0-33.9, adult
CPT/HCPCS: 36415; 70450; 71275; 80048; 80053; 80061; 81001; 82805; 82947; 83036; 83605; 83735; 83880; 84100; 84439; 84443; 84484; 85025; 85610; 85730; 87040; 93005; 94760; 99285; C9113; J0692; J1650; J1815; J2405; J7030; J7050; Q9967